=== PATIENT | female | born 1930 | race American Indian/Alaskan Native ===

== ENCOUNTER 2016-12-26 19:29 | Emergency (ER) | payer MEDICARE, OTHER ==
[2016-12-26] MEDS ORDERED: PEPCID PO ONE (22:26)
[2016-12-26] MEDS ORDERED: BENADRYL PO ONE (22:26)
--- NOTE | 2016-12-26 22:31 | Emergency Department Report ---
[place] [facility] Chief Complaint: Skin Rash Stated Complaint: ALLERGIC REACTION Time Seen by Provider: 12/26/16 21:05 ED Review of Systems ROS: Stated complaint: ALLERGIC REACTION Other details as noted in HPI ED Past Medical Hx - Past Medical History Previous Medical History?: Yes Hx Hypertension: Yes Hx Congestive Heart Failure: Yes Hx COPD: Yes Additional medical history: Sarcoidosis - Surgical History Past Surgical History?: Yes Hx Appendectomy: Yes Additional Surgical History: Thyroid, stents, Colon, - Social History Smoking Status: Never Smoker Substance Use Type: None - Medications Home Medications: Home Medications Medication Instructions Recorded Confirmed Last Taken Type Cetirizine HCl [24Hour Allergy] 10 mg PO QDAY PRN #1 bottle 12/26/16 Unknown Rx EPINEPHrine (NF) [Epipen (Nf)] 0.3 mg IM ONCE PRN #1 syringekit 12/26/16 Unknown Rx Hydrocortisone 1% [Hydrocortisone 1 applicatio TP TID PRN #1 tube 12/26/16 Unknown Rx 1% CREAM] Prednisone [predniSONE 5 mg (6-Day 5 mg PO .TAPER #1 tab.ds.pk 12/26/16 Unknown Rx Pack, 21 Tabs)] Rash Exam - Exam General: Vital signs noted. No distress. Alert and acting appropriately. ED Course Vital Signs 12/26/16 19:42 Temperature 98.6 F Pulse Rate 77 Respiratory 18 Rate Blood Pressure 139/65 [Right] O2 Sat by Pulse 98 Oximetry ED Medical Decision Making - Medical Decision Making A/P: Hives/allergic reaction 1-Cetirizine, pepcid, topical hydrocortisone 2-low-dose prednisone Dosepak 3-EpiPen when necessary for any signs of angioedema or anaphylactic reaction 4- I educated the patient and her family members were at bedside on signs of severe allergic reaction and anaphylaxis and showed them images and angioedema. I advised patient that should she develop any tongue swelling or lip swelling significant facial swelling or any difficulty breathing to use EpiPen and call 911 immediately and return to the emergency room [facility]. Critical care attestation.: If time is entered above; I have spent that time in minutes in the direct care of this critically ill patient, excluding procedure time. ED Disposition Clinical Impression: Hives Disposition: - TO HOME OR SELFCARE Is pt being admited?: No Does the pt Need Aspirin: No Condition: Stable Instructions: Urticaria (ED), Allergies (ED) Prescriptions: Cetirizine HCl [24Hour Allergy] 10 mg PO QDAY PRN #1 bottle PRN Reason: Allergy Symptoms EPINEPHrine (NF) [Epipen (Nf)] 0.3 mg IM ONCE PRN #1 syringekit PRN Reason: Anaphylaxis Hydrocortisone 1% [Hydrocortisone 1% CREAM] 1 applicatio TP TID PRN #1 tube PRN Reason: Itching Prednisone [predniSONE 5 mg (6-Day Pack, 21 Tabs)] 5 mg PO .TAPER #1 tab.ds.pk Referrals: ESTEBAN GOETZ MD [Staff Physician] - 3-5 Days [facility] [Provider Group] - 3-5 Days Forms: Accompanied Note Time of Disposition: 22:33
[2016-12-26 22:34] VITALS: BP 150/75
== END 2016-12-26 22:51 | disposition home or self-care (01) ==
LOC: ED 19:29
DX: L50.9 Urticaria, unspecified (principal); I10 Essential (primary) hypertension; I50.9 Heart failure, unspecified; J44.9 Chronic obstructive pulmonary disease, unspecified
CPT/HCPCS: 93005; 93010; 99282